=== PATIENT | male | born 1955 | race Caucasian/White ===

== ENCOUNTER 2018-08-31 06:33 | Day surgery (SDC) | payer OTHER, SELFPAY ==
[~2018-08-31] VITALS: Ht 180.3 cm; Wt 86.2 kg
[~2018-08-31 06:33] MED LIST: ASPI1TAB15 PO; CALC600T7 PO; LISI-538 PO; METF500T13 PO; MULTCAP PO; OMEP40CA2 PO; SERT-138 PO; SIMV10TA2 PO
[2018-08-31] MEDS: NS 1,000 ML IV SCH ×2 (07:03→07:32)
[2018-08-31] MEDS ORDERED: LIDOCAINE 2% INJ 100 MG/5 ML SDV (FOR ANES.) As Ordered ONE (07:42)
[2018-08-31] MEDS ORDERED: PROPOFOL 200 MG/20 ML VIAL As Ordered ONE ×2 (07:42→08:08)
--- NOTE | 2018-08-31 08:17 | ROOR ---
Patient Name: Salty Salazar Procedure Date: 08/31/2018 7:29 AM Date of : 1955 Age: 63 Room: [facility] Gender: Male Note Status: Finalized Procedure: Colonoscopy Indications: Positive fecal immunochemical test Providers: Joey Quiñones MD Referring MD: Jevon Benitez MD Requesting Provider: Medicines: Monitored Anesthesia Care Complications: No immediate complications. Procedure: Pre-Anesthesia Assessment: - Prior to the procedure, a History and Physical was performed, and patient medications and allergies were reviewed. The patient is competent. The risks and benefits of the procedure and the sedation options and risks were discussed with the patient. All questions were answered and informed consent was obtained. Patient identification and proposed procedure were verified by the physician, the nurse and the anesthesiologist in the procedure room. Mental Status Examination: alert and oriented. Airway Examination: normal oropharyngeal airway and neck mobility. Respiratory Examination: clear to auscultation. CV Examination: normal. Prophylactic Antibiotics: The patient does not require prophylactic antibiotics. Prior Anticoagulants: The patient has taken no previous anticoagulant or antiplatelet agents. ASA Grade Assessment: II - A patient with mild systemic disease. After reviewing the risks and benefits, the patient was deemed in satisfactory condition to undergo the procedure. The anesthesia plan was to use monitored anesthesia care (MAC). Immediately prior to administration of medications, the patient was re-assessed for adequacy to receive sedatives. The heart rate, respiratory rate, oxygen saturations, blood pressure, adequacy of pulmonary ventilation, and response to care were monitored throughout the procedure. The physical status of the patient was re-assessed after the procedure. The Colonoscope was introduced through the anus and advanced to the terminal ileum, with identification of the appendiceal orifice and IC valve. The colonoscopy was performed without difficulty. The patient tolerated the procedure well. The quality of the bowel preparation was good. The terminal ileum, ileocecal valve, appendiceal orifice, and rectum were photographed. Scope insertion time was 5 minutes. Scope withdrawal time was 15 minutes. The total duration of the procedure was 20 minutes. Findings: The perianal and digital rectal examinations were normal. The terminal ileum appeared normal. A 10 mm polyp was found in the cecum. The polyp was sessile. The polyp was removed with a cold snare. Resection and retrieval were complete. Verification of patient identification for the specimen was done by the physician and nurse using the patient's name, date and medical record number. Estimated blood loss was minimal. A 5 mm polyp was found in the rectum. The polyp was sessile. The polyp was removed with a cold biopsy forceps. Resection and retrieval were complete. A few small-mouthed diverticula were found in the sigmoid colon. There was no evidence of diverticular bleeding. External and internal hemorrhoids were found during retroflexion. The hemorrhoids were medium-sized. Impression: - The examined portion of the ileum was normal. - One 10 mm polyp in the cecum, removed with a cold snare. Resected and retrieved. - One 5 mm polyp in the rectum, removed with a cold biopsy forceps. Resected and retrieved. - Mild diverticulosis in the sigmoid colon. There was no evidence of diverticular bleeding. - External and internal hemorrhoids. Recommendation: - Patient has a contact number available for emergencies. The signs and symptoms of potential delayed complications were discussed with the patient. Return to normal activities tomorrow. Written discharge instructions were provided to the patient. - High fiber diet. - Continue present medications. - Await pathology results. - Repeat colonoscopy in 3 - 5 years for surveillance based on pathology results. - Based on the biopsy results you will receive a phone call from GI clinic in 2-3 weeks to review the pathology results AND/OR your results will be faxed to your Primary care physician. - Return to primary care physician. Joey Quiñones MD Joey Quiñones MD 08/31/2018 8:16:50 AM This report has been signed electronically. Number of Addenda: 0 Note Initiated On: 08/31/2018 7:29 AM Estimated Blood Loss: Estimated blood loss was minimal.
[2018-08-31 08:35] VITALS: BP 106/64
== END 2018-08-31 08:51 | disposition home or self-care (01) ==
LOC: M OPP 06:33
PROVIDERS: ATTEND Internal Medicine Gastroenterology
DX: R19.5 Other fecal abnormalities (principal); D12.0 Benign neoplasm of cecum; D12.8 Benign neoplasm of rectum; K57.30 Diverticulosis of large intestine without perforation or abscess without bleeding; K64.8 Other hemorrhoids; Z82.0 Family history of epilepsy and other diseases of the nervous system

== ENCOUNTER → 2021-03-14 | Outpatient (CLI) | payer OTHER ==
[~2021-03-14] MED LIST changes: +ASPI-546 PO; -ASPI1TAB15 PO; +CALC-212 PO; -CALC600T7 PO; +FLUTISP; -LISI-538 PO; +LISI20TA33 PO; -OMEP40CA2 PO; +OMEP40CA4 PO; +PRIL20TA2 PO; -SIMV10TA2 PO; +SIMV10TA21 PO
[2021-03-14 07:28] LABS: ALBUMIN 3.6 GM/DL (3.2-5.2); ALT/SGPT 35 U/L (12-78); BILIRUBIN,DIRECT < 0.1 MG/DL (0.0-0.2); BILIRUBIN,TOTAL 0.3 MG/DL (0.2-1.0); FERRITIN 70 NG/ML (26-388); IRON (FE) 53 UG/DL (65-175); TOTAL IRON BINDING CAPACITY 294 UG/DL (250-450); TOTAL PROTEIN 7.2 GM/DL (6.4-8.2)
[2021-03-15 16:08] LABS: ANTI-MITOCHONDRIAL ANTIBODY <20.0 Units (0.0-20.0); ANTI-SMOOTH MUSCLE ANTIBODY 17 Units (0-19); ANTINUCLEAR ANTIBODIES DIRECT Negative (Negative); HEPATITIS B CORE ANTIBODY IGG Negative (Negative); LIVER-KIDNEY MICROSOMAL ABY <20.1 Units (0.0-20.0)
== END ==
LOC: M LAB 06:26
PROVIDERS: ATTEND Internal Medicine Gastroenterology
DX: R93.3 Abnormal findings on diagnostic imaging of other parts of digestive tract (principal)

== ENCOUNTER → 2021-03-18 | Outpatient (CLI) | payer OTHER | LOC: M LABSMTC 10:41 | PROVIDERS: ATTEND Anesthesiology | DX: Z01.812 Encounter for preprocedural laboratory examination (principal); Z20.822 Contact with and (suspected) exposure to COVID-19 ==

== ENCOUNTER → 2021-03-19 | Outpatient (CLI) | payer OTHER ==
[~2021-03-19] MED LIST changes: +ISOVUE-370 76% 100ML VIAL As Ordered ONE
== END ==
LOC: M RAD 14:42
PROVIDERS: ATTEND Internal Medicine
DX: R16.0 Hepatomegaly, not elsewhere classified (principal)

== ENCOUNTER 2021-03-22 13:13 | Day surgery (SDC) | payer OTHER ==
[~2021-03-22] VITALS: Ht 180.3 cm; Wt 99.8 kg
[~2021-03-22 13:13] MED LIST changes: -ISOVUE-370 76% 100ML VIAL As Ordered ONE; +LR 1,000 ML IV ONE; +NS 1,000 ML IV ONE
[2021-03-22] MEDS ORDERED: propofoL 200 MG/20 ML VIAL As Ordered ONE ×2 (15:45→15:46)
[2021-03-22] MEDS ORDERED: LIDOCAINE 2% 100MG/5ML SDV (FOR ANES.) As Ordered ONE (15:46)
[2021-03-22] MEDS ORDERED: fentaNYL 100 MCG/2 ML INJECTION (J3010) As Ordered ONE (15:46)
[2021-03-22] MEDS ORDERED: ePHEDrine SULFATE 25 MG/5 ML(5MG/ML) SYRINGE As Ordered ONE (16:34)
[2021-03-22] MEDS ORDERED: PHENYLephrine 500MCG 5ML (100MCG/ML) SYRINGE As Ordered ONE (16:34)
--- NOTE | 2021-03-22 16:50 | ROOR ---
Patient Name: Salty Salazar Procedure Date: 03/22/2021 3:14 PM Date of : 1955 Age: 65 Gender: Male Note Status: Finalized Procedure: Upper GI endoscopy Indications: Screening procedure, Abnormal CT of the GI tract Providers: Joey Quiñones MD Referring MD: Freeman DONALD MD Requesting Provider: Medicines: Monitored Anesthesia Care Complications: No immediate complications. Procedure: Pre-Anesthesia Assessment: - Prior to the procedure, a History and Physical was performed, and patient medications and allergies were reviewed. The patient is competent. The risks and benefits of the procedure and the sedation options and risks were discussed with the patient. All questions were answered and informed consent was obtained. Patient identification and proposed procedure were verified by the physician, the nurse and the anesthesiologist in the procedure room. Mental Status Examination: alert and oriented. Airway Examination: normal oropharyngeal airway and neck mobility. Respiratory Examination: clear to auscultation. CV Examination: normal. Prophylactic Antibiotics: The patient does not require prophylactic antibiotics. Prior Anticoagulants: The patient has taken no previous anticoagulant or antiplatelet agents. ASA Grade Assessment: III - A patient with severe systemic disease. After reviewing the risks and benefits, the patient was deemed in satisfactory condition to undergo the procedure. The anesthesia plan was to use monitored anesthesia care (MAC). Immediately prior to administration of medications, the patient was re-assessed for adequacy to receive sedatives. The heart rate, respiratory rate, oxygen saturations, blood pressure, adequacy of pulmonary ventilation, and response to care were monitored throughout the procedure. The physical status of the patient was re-assessed after the procedure. The Endoscope was introduced through the mouth, and advanced to the second part of duodenum. The upper GI endoscopy was accomplished without difficulty. The patient tolerated the procedure well. Findings: The examined esophagus was normal. The Z-line was irregular and was found at the gastroesophageal junction. Scattered minimal inflammation characterized by erythema and granularity was found in the gastric antrum. Biopsies were taken with a cold forceps for histology. Verification of patient identification for the specimen was done by the physician and nurse using the patient's name, date and medical record number. Estimated blood loss was minimal. The duodenal bulb, second portion of the duodenum and third portion of the duodenum were normal. Impression: - Normal esophagus. - Z-line irregular, at the gastroesophageal junction. - Gastritis. Biopsied. - Normal duodenal bulb, second portion of the duodenum and third portion of the duodenum. Recommendation: - Patient has a contact number available for emergencies. The signs and symptoms of potential delayed complications were discussed with the patient. Return to normal activities tomorrow. Written discharge instructions were provided to the patient. - High fiber diet. - Continue present medications. - Refer to Liver center as previously recommended for liver mass. - Await pathology results. - Telephone GI clinic for pathology results in 2 weeks. - Return to GI clinic if persistent symptoms or new symptoms. - Return to primary care physician. Procedure Code(s): --- Professional --- 74305, Esophagogastroduodenoscopy, flexible, transoral; with biopsy, single or multiple Diagnosis Code(s): --- Professional --- K22.8, Other specified diseases of esophagus K29.70, Gastritis, unspecified, without bleeding Z13.810, Encounter for screening for upper gastrointestinal disorder R93.3, Abnormal findings on diagnostic imaging of other parts of digestive tract CPT copyright 2019 [employer]. All rights reserved. The codes documented in this report are preliminary and upon food preparation kitchen aide review may be revised to meet current compliance requirements. Joey Quiñones MD Joey Quiñones MD 03/22/2021 4:49:23 PM Electronically signed by Joey Quiñones MD Number of Addenda: 0 Note Initiated On: 03/22/2021 3:14 PM Estimated Blood Loss: Estimated blood loss was minimal.
--- NOTE | 2021-03-22 16:54 | ROOR ---
Patient Name: Salty Salazar Procedure Date: 03/22/2021 3:18 PM Date of : 1955 Age: 65 Gender: Male Note Status: Finalized Procedure: Colonoscopy Indications: Screening for colorectal malignant neoplasm Providers: Joey Quiñones MD Referring MD: Freeman DONALD MD Requesting Provider: Medicines: Monitored Anesthesia Care Complications: No immediate complications. Procedure: Pre-Anesthesia Assessment: - Prior to the procedure, a History and Physical was performed, and patient medications and allergies were reviewed. The patient is competent. The risks and benefits of the procedure and the sedation options and risks were discussed with the patient. All questions were answered and informed consent was obtained. Patient identification and proposed procedure were verified by the physician, the nurse and the anesthesiologist in the procedure room. Mental Status Examination: alert and oriented. Airway Examination: normal oropharyngeal airway and neck mobility. Respiratory Examination: clear to auscultation. CV Examination: normal. Prophylactic Antibiotics: The patient does not require prophylactic antibiotics. Prior Anticoagulants: The patient has taken no previous anticoagulant or antiplatelet agents. ASA Grade Assessment: III - A patient with severe systemic disease. After reviewing the risks and benefits, the patient was deemed in satisfactory condition to undergo the procedure. The anesthesia plan was to use monitored anesthesia care (MAC). Immediately prior to administration of medications, the patient was re-assessed for adequacy to receive sedatives. The heart rate, respiratory rate, oxygen saturations, blood pressure, adequacy of pulmonary ventilation, and response to care were monitored throughout the procedure. The physical status of the patient was re-assessed after the procedure. The Colonoscope was introduced through the anus and advanced to the terminal ileum, with identification of the appendiceal orifice and IC valve. The colonoscopy was performed without difficulty. The patient tolerated the procedure well. The quality of the bowel preparation was excellent. The terminal ileum, ileocecal valve, appendiceal orifice, and rectum were photographed. Scope insertion time was 2 minutes. Scope withdrawal time was 8 minutes. The total duration of the procedure was 10 minutes. Findings: The perianal and digital rectal examinations were normal. Pertinent negatives include normal sphincter tone. The terminal ileum appeared normal. A few medium-mouthed diverticula were found in the sigmoid colon. There was no evidence of diverticular bleeding. Non-bleeding external and internal hemorrhoids were found during retroflexion. The hemorrhoids were medium-sized. No other significant abnormalities were identified in a careful examination of the remainder of the colon. Impression: - The examined portion of the ileum was normal. - Moderate diverticulosis in the sigmoid colon. There was no evidence of diverticular bleeding. - Non-bleeding external and internal hemorrhoids. - No specimens collected. Recommendation: - Patient has a contact number available for emergencies. The signs and symptoms of potential delayed complications were discussed with the patient. Return to normal activities tomorrow. Written discharge instructions were provided to the patient. - High fiber diet. - Continue present medications. - Await pathology results. - Repeat colonoscopy in 5 years for surveillance and due to personal history of colon polyps in past Colonoscopy. - Follow the recommendations as per the other procedure note. - Return to GI clinic if persistent symptoms or new symptoms. - Return to primary care physician. Procedure Code(s): --- Professional --- 03717, Colonoscopy, flexible; diagnostic, including collection of specimen(s) by brushing or washing, when performed (separate procedure) Diagnosis Code(s): --- Professional --- Z12.11, Encounter for screening for malignant neoplasm of colon K64.8, Other hemorrhoids K57.30, Diverticulosis of large intestine without perforation or abscess without bleeding CPT copyright 2019 [employer]. All rights reserved. The codes documented in this report are preliminary and upon water filterer helper review may be revised to meet current compliance requirements. Joey Quiñones MD Joey Quiñones MD 03/22/2021 4:53:38 PM Electronically signed by Joey Quiñones MD Number of Addenda: 0 Note Initiated On: 03/22/2021 3:18 PM Estimated Blood Loss: Estimated blood loss: none.
[2021-03-22 17:20] VITALS: BP 126/72
== END 2021-03-22 17:35 | disposition home or self-care (01) ==
LOC: M SDC 13:13
PROVIDERS: ATTEND Internal Medicine Gastroenterology
DX: Z13.810 Encounter for screening for upper gastrointestinal disorder (principal); Z12.11 Encounter for screening for malignant neoplasm of colon; R93.3 Abnormal findings on diagnostic imaging of other parts of digestive tract; K64.8 Other hemorrhoids; K57.30 Diverticulosis of large intestine without perforation or abscess without bleeding; K29.70 Gastritis, unspecified, without bleeding; K22.8 Other specified diseases of esophagus; K21.9 Gastro-esophageal reflux disease without esophagitis; Z79.899 Other long term (current) drug therapy; F10.11 Alcohol abuse, in remission
CPT/HCPCS: 43239; 45378; 88305; J2370; J3010

== ENCOUNTER → 2021-03-29 | Outpatient (CLI) | payer OTHER ==
[~2021-03-29] MED LIST changes: +KETOROLAC 30 MG/ML 1ML VIAL As Ordered ONE; +LIDOCAINE 1% MDV 20ML VIAL As Ordered ONE; -LR 1,000 ML IV ONE; -NS 1,000 ML IV ONE; +SODIUM BICARBONATE 8.4% INJ 50MEQ 50 ML VIAL As Ordered ONE
[2021-03-29 11:54] LABS: HEMATOCRIT 47.3 % (42.0-52.0); HEMOGLOBIN 15.3 g/dl (13.5-17.5); MEAN CORPUSCULAR HGB CONC 32.3 g/dl (32.0-36.5); MEAN CORPUSCULAR VOLUME 86.5 fl (80.0-96.0); PLATELET COUNT, AUTOMATED 335 10^3/uL (150-450); RED BLOOD COUNT 5.47 10^6/uL (4.30-6.10); WHITE BLOOD COUNT 10.5 10^3/uL (4.0-10.0)
--- NOTE | 2021-03-29 13:25 | REP ---
INDICATION: POST LIVER BIOPSY, EVAL FOR BLEED. Patient is status post biopsy of retroperitoneal mass lesion under ultrasound guidance with postprocedure pain. COMPARISON: Comparison is made with CT study from February 07, 2021 and March 19, 2021.. TECHNIQUE: Helical scanning is acquired and 3 mm axial images re-formatted. Coronal and sagittal MPR images are provided. FINDINGS: The right suprarenal retroperitoneal mass is again seen unchanged. There 1 or 2 peripheral calcifications within the lesion. There is a small amount of linear postprocedure edema or possibly local anesthetic in the trajectory of the needle passed in the Ruchi renal fat. There is no evidence of wilian hematoma. There is mild fatty infiltration of the liver. No evidence of free intraperitoneal air or fluid. There is a subpleural pattern of ground-glass opacity in the left lower lobe and to a lesser extent, there is subsegmental atelectatic change in the right lower lobe. There are also granulomatous calcifications. IMPRESSION: No wilian hematoma seen. <Electronically signed by James Dotson > 03/29/21 [id number]
[2021-03-29 15:29] VITALS: BP 118/68
--- NOTE | 2021-03-29 17:31 | REP ---
INDICATION: LIVER MASS. COMPARISON: None. TECHNIQUE: The procedure was performed by Belem Ruiz [facility], under the direct supervision of Dr. Dotson. The risks and benefits of the procedure were explained to the patient and an informed consent was obtained both verbally and written. Directly prior to the start of the procedure a formal time-out was completed in the procedure room. FINDINGS: Using ultrasound guidance the right supra renal mass was localized. The skin was prepped and draped in a sterile fashion. Fifteen mL of buffered lidocaine was used as a local anesthetic. Using ultrasound guidance a 19/20 gauge coaxial needle biopsy system was inserted and advanced into the right supra renal mass. Six core biopsy specimens were obtained and sent to pathology for further analysis. The patient tolerated the procedure well and there were no immediate complications. Shortly after the procedure the patient complained of intense pain at the biopsy site. He was given 30 mg Toradol IV and a CT scan was obtained to evaluate for any post biopsy bleeding. The CT was negative, and the patient's pain subsided over the next hour. After the appropriate amount of monitored convalescence the patient was discharged from the department. IMPRESSION: 1. Ultrasound-guided right supra renal mass biopsy. <Electronically signed by Belem Ruiz > 03/29/21 1701 <Electronically signed by James Dotson > 03/29/21 [id number]
== END ==
LOC: M IRPRO 10:34
PROVIDERS: ATTEND Internal Medicine
DX: K76.89 Other specified diseases of liver (principal)
CPT/HCPCS: 47000; 74150; 76942; 85027; 88305; J1885

== ENCOUNTER → 2021-05-23 | Outpatient (CLI) | payer OTHER ==
[~2021-05-23] MED LIST changes: -KETOROLAC 30 MG/ML 1ML VIAL As Ordered ONE; -LIDOCAINE 1% MDV 20ML VIAL As Ordered ONE; -SODIUM BICARBONATE 8.4% INJ 50MEQ 50 ML VIAL As Ordered ONE
== END ==
LOC: M LABSMTC 10:26
PROVIDERS: ATTEND Surgery
DX: Z11.52 Encounter for screening for COVID-19 (principal)